=== PATIENT | male | born 1970 | race Caucasian/White ===

== ENCOUNTER 2016-08-14 09:33 | Day surgery (SDC) | payer MEDICARE, OTHER ==
[~2016-08-14 09:33] MED LIST: LACTATED RINGERS 1,000 ML IV SCH
[2016-08-14] MEDS ORDERED: LACTATED RINGERS 1,000 ML ONE (10:14)
[2016-08-14] MEDS ORDERED: IV START KIT ONE ×2 (10:15→12:19)
[2016-08-14] MEDS ORDERED: PROPOFOL 40 ML IV ONE (11:57)
[2016-08-14] MEDS ORDERED: SODIUM CHLORIDE 0.9% FLUSH 10 ML ONE (12:18)
[2016-08-14] MEDS ORDERED: ONDANSETRON 4 MG/2ML 2 ML VIAL IV ONE (12:33)
[2016-08-14 20:22] LABS: HELICOBACTER PYLORII DETECTION NEGATIVE (NEGATIVE)
--- NOTE | 2016-08-18 12:47 | SURGPATH ---
[facility] [address] [place] [id number] Patient Name: DEUCE CORTES MR#: [id number] : 1970 Gender: M Specimen #: [id number] Collected: 08/14/2016 Received: 08/15/2016 Reported: 08/18/2016 Submitting Phys: LIDIA ROLON Copy To Phys: [facility] Clinical History / Pre-Operative Diagnosis: DYSPHAGIA; HISTORY OF ESOPHAGEAL STRICTURE; RULE OUT GIARDIA, CELIAC SPRUE AND GASTRITIS Specimen Source / Surgical Procedure Performed: #1-DUODENAL BIOPSY; #2-ANTRAL BIOPSY Interpretation: 1. DUODENUM, BIOPSY: - NO DIAGNOSTIC ABNORMALITIES 2. STOMACH, ANTRUM, BIOPSY: - NO DIAGNOSTIC ABNORMALITIES - NO HELICOBACTER ORGANISMS SEEN ON ROUTINE STAIN Electronically Signed Out Sejal Cedeno M.D. Gross Description: #1 The specimen is received in a formalin filled container labeled with the patient's name and "duodenal biopsy". A single moreno biopsy is 0.5 cm. Totally embedded in cassette #1. #2 The specimen is received in a formalin filled container labeled with the patient's name and "antral biopsy". Two moreno biopsies are 0.3 and 0.5 cm. Totally embedded in cassette #2. Lala Rea Microscopic Description: Part 1: Sections show duodenal mucosa with overall intact architecture with a villous to crypt ratio of three to one. No increased intraepithelial lymphocytes, gastric metaplasia, active duodenitis, or evidence of Giardia are seen on routine stain. No malignancy is seen. Part 2: Sections show gastric oxyntic mucosa with overall intact architecture. No significant active or chronic inflammation is seen. No Helicobacter organisms are seen on routine stain. No dysplasia or malignancy is seen. 1: 60746 2: 93641 R13.10
== END 2016-08-14 13:35 | disposition home or self-care (01) ==
LOC: SDC 09:33
PROVIDERS: ATTEND Internal Medicine Gastroenterology
PROC: 0D748ZZ Dilation of Esophagogastric Junction, Via Natural or Artificial Opening Endoscopic (ICD-10-PCS; principal; 2016-08-14)
PROC: 0DB98ZX Excision of Duodenum, Via Natural or Artificial Opening Endoscopic, Diagnostic (ICD-10-PCS; 2016-08-14)
PROC: 0DB68ZX Excision of Stomach, Via Natural or Artificial Opening Endoscopic, Diagnostic (ICD-10-PCS; 2016-08-14)
DX: K22.2 Esophageal obstruction (principal); K21.0 Gastro-esophageal reflux disease with esophagitis; K29.80 Duodenitis without bleeding; K29.70 Gastritis, unspecified, without bleeding; I10 Essential (primary) hypertension; E78.5 Hyperlipidemia, unspecified; G43.909 Migraine, unspecified, not intractable, without status migrainosus; F31.9 Bipolar disorder, unspecified; J31.0 Chronic rhinitis
CPT/HCPCS: 87081; 43249; 43239; J2405; J7120